=== PATIENT | female | born 1970 | race Caucasian/White ===

== ENCOUNTER 2024-11-22 18:30 | Emergency (ER) | payer OTHER, SELFPAY ==
[2024-11-22 18:36] VITALS: BP 138/84
--- NOTE | 2024-11-22 21:36 | ED.GENMED ---
History of Present Illness
General
Chief Complaint: Musculo-Skeletal Complaint
Time Seen by Provider: 11/22/24 21:02
History of Present Illness
History of Present Illness:
54-year-old female presenting to the emergency department with right knee pain. Patient reports some general soreness to the knee in the past few days, however today pain worsened and she had difficulty bearing weight. Also notes swelling. Denies
any prior history of any injuries. Denies numbness or tingling. Denies any fever or redness. She had some ibuprofen for pain. Denies any direct fall or trauma. Denies any additional acute medical complaints.
Phy Exam
Physical Exam
Physical Exam:
General: Well-appearing, no clinical signs of dehydration, nontoxic and in no acute distress
HEENT: protecting airway
Neck: appears supple
CV: Normal heart rate
Resp: No accessory muscle use, no increased work of breathing
Abd: No distention
Extremities: No deformities, minimal swelling to the right suprapatellar region. Range of motion grossly intact. Distal sensation and pulses intact. No erythema or warmth to the skin overlying the knee
Neuro: alert, no focal neurologic deficit
: deferred
Rectal: deferred
Psych: Normal affect
Skin: Intact
Course
Orders/Labs/Results
Orders:
Orders
11/22/24 18:39
Knee, Right 4 or More Views [CR Knee- Right 4 Or More View*] Urgent
Comment:
Reason For Exam: pain
11/22/24 21:35
Crutches-Treatment ONCE
Knee Immobilizer Right-Treatme ONCE
Vital Signs
Initial and Last Documented VS:
Initial Vital Signs
Temp Pulse Resp BP Pulse Ox
97.8 F 63 18 138/84 98
11/22/24 18:36 11/22/24 18:36 11/22/24 18:36 11/22/24 18:36 11/22/24 18:36
Last Documented Vital Signs
Temp Pulse Resp BP Pulse Ox
97.8 F 63 18 138/84 98
11/22/24 18:36 11/22/24 18:36 11/22/24 18:36 11/22/24 18:36 11/22/24 18:36
MDM/Problems Addressed
MDM/Problems Addressed:
54-year-old female presenting for right knee pain. Vital signs are normal.
On exam patient is resting comfortably, no acute distress or discomfort. Minimal swelling to the knee, otherwise range of motion is intact. No obvious deformity. Distal sensation and pulses intact. No infectious findings. Ultimately suspect
ligamentous or soft tissue injury. Lower suspicion for fracture given absence of direct trauma. X-ray obtained, unremarkable. Again, reassuring examination. Ultimately feel stable for discharge with outpatient supportive therapy. Advised
ibuprofen for pain, ice for swelling and orthopedic follow-up for possible MRI imaging if symptoms persist, for complete rule out of ligamentous injury. Return precautions discussed and patient verbalized understanding
*Pulse Oximetry
SaO2: 98
Oxygen Mode of Delivery: Room air
Patient hypoxic: no
*Critical Care Note
Total Time (30-74mins, 75-104mins- exclusive of procedures): Not Applicable
ED Attending Note
-
Portions of this chart may have been created with voice recognition software.� Occasional wrong word or��sound alike� substitutions may have occurred due to the inherent limitations of voice recognition software.
Discharge Plan
Departure
Prescriptions:
No Action
No Current Medications
0
Referrals:
Rosemary Pino MD [Family Provider, Family Practice]
Interventions
Interventions:
*Risk Screen - Suicide Last Done: 11/22/24 18:36
*General Assessment Last Done: 11/22/24 18:36
*Neglect/Abuse Screening Last Done: 11/22/24 18:36
ED-Musculoskeletal Assessment Last Done: 11/22/24 21:15
Discharge Date and Time
Print Language: KITTITIAN
== END 2024-11-22 22:20 | disposition home or self-care (01) ==
LOC: EMR 18:30
PROVIDERS: EMERGENCY PHYSICIAN Student in an Organized Health Care Education/Training Program; FAMILY PHYSICIAN Family Medicine
DX: M25.561 Pain in right knee (principal); M79.89 Other specified soft tissue disorders
CPT/HCPCS: 99283; 73564